=== PATIENT | male | born 1995 | race Caucasian/White ===

== ENCOUNTER 2017-06-23 17:10 | Emergency (ER) | payer OTHER ==
[2017-06-23] MEDS ORDERED: Ibuprofen TAB* 800 MG PO ONE (17:53)
--- NOTE | 2017-06-23 18:50 | RAD ---
Indication: Right ankle pain. 3 views of the right ankle demonstrates no fracture. No other bone or joint abnormality is identified. IMPRESSION: No fracture of the right ankle is noted.
--- NOTE | 2017-06-23 18:51 | RAD ---
Indication: Right foot pain. 3 views of the right foot demonstrates no fracture. No other bone or joint abnormality is identified. IMPRESSION: Unremarkable right foot.
--- NOTE | 2017-06-23 19:40 | ED ---
Reyna Holland Nilda, scribed for Vance Sousa MD on 06/23/17 at 1905 . Lower Extremity - HPI Summary HPI Summary: This patient is a 22 year old M presenting to [facility] accompanied by friend with a chief complaint of constant right foot pain s/p tripping yesterday. The patient rates the pain 5/10 in severity. Symptoms aggravated by movement and palpation and alleviated by rest. - History of Current Complaint Chief Complaint: EDExtremityLower Stated Complaint: RT ANKLE INJURY Time Seen by Provider: 06/23/17 17:49 Hx Obtained From: Patient Mechanism Of Injury: Other - tripped Onset/Duration: Days Severity Currently: Moderate Pain Intensity: 5 Pain Scale Used: 0-10 Numeric Timing: Constant Location: Is Discrete @ - right foot Aggravating Factor(s): Movement, Other - palpation Alleviating Factor(s): Rest - Allergies/Home Medications Allergies/Adverse Reactions: Allergies Allergy/AdvReac Type Severity Reaction Status Date / Time No Known Allergies Allergy Verified 06/23/17 17:20 PMH/Surg Hx/FS Hx/Imm Hx Sensory History: Denies: Hx Legally Blind EENT History: Denies: Hx Deafness Infectious Disease History: No Infectious Disease History: Denies: Traveled Outside the [place] in Last 30 Days - Family History Known Family History: Negative: Hypertension, Diabetes - Social History Alcohol Use: Occasionally Substance Use Type: Reports: Marijuana Smoking Status (MU): Never Smoked Tobacco Review of Systems Positive: Other - mechanical fall Negative: Shortness Of Breath Positive: Other - right foot pain All Other Systems Reviewed And Are Negative: Yes Physical Exam - Summary Physical Exam Summary: VITAL SIGNS: Reviewed. GENERAL: Patient is a well-developed and nourished male who is lying comfortable in the stretcher. Patient is not in any acute respiratory distress. HEAD AND FACE: No signs of trauma. No ecchymosis, hematomas or skull depressions. No sinus tenderness. EYES: PERRLA, EOMI x 2, No injected conjunctiva, no nystagmus. EARS: Hearing grossly intact. Ear canals and tympanic membranes are within normal limits. MOUTH: Oropharynx within normal limits. NECK: Supple, trachea is midline, no adenopathy, no JVD, no carotid bruit, no c- spine tenderness, neck with full ROM. CHEST: Symmetric, no tenderness at palpation LUNGS: Clear to auscultation bilaterally. No wheezing or crackles. CVS: Regular rate and rhythm, S1 and S2 present, no murmurs or gallops appreciated. ABDOMEN: Soft, non-tender. No signs of distention. No rebound no guarding, and no masses palpated. Bowel sounds are normal. EXTREMITIES: FROM in all major joints, no edema, no cyanosis or clubbing. 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 NEURO: Alert and oriented x 3. No acute neurological deficits. Speech is normal and follows commands. SKIN: Dry and warm Triage Information Reviewed: Yes Vital Signs On Initial Exam: Initial Vitals Temp Pulse Resp BP Pulse Ox 98.2 F 80 16 103/59 98 06/23/17 17:17 06/23/17 17:17 06/23/17 17:17 06/23/17 17:17 06/23/17 17:17 Vital Signs Reviewed: Yes Diagnostics - Vital Signs Vital Signs Temp Pulse Resp BP Pulse Ox 06/23/17 18:00 78 103/52 96 06/23/17 17:47 73 98 06/23/17 17:45 111/64 06/23/17 17:17 98.2 F 80 16 103/59 98 - Laboratory Lab Statement: Any lab studies that have been ordered have been reviewed, and results considered in the medical decision making process. - Radiology Right ankle XR Radiology Interpretation Completed By: Radiologist - Right ankle XR reveals no fracture of the right ankle is noted. Dr. Sousa has reviewed this radiology report. Right foot XR Radiology Interpretation Completed By: Radiologist - Right foot XR reveals unremarkable right foot. Dr. Sousa has reviewed this radiology report. Lower Extremity Course/Dx - Course Assessment/Plan: Pt is 22 y/o complaining of right foot pain s/p falling yesterday. XR of right foot and ankle are unremarkable. Pt will be D/C home with Motrin and Dx of foot contusion. - Diagnoses Provider Diagnoses: Contusion of right foot Discharge - Discharge Plan Condition: Stable Disposition: HOME Prescriptions: Ibuprofen TAB* [Motrin TAB* 800 MG] 800 mg PO Q6H PRN #30 tab PRN Reason: Pain Patient Education Materials: Foot Contusion (ED) [facility] Provider] - 3 Days Additional Instructions: RETURN TO THE EMERGENCY DEPARTMENT FOR CHANGING OR WORSENING SYMPTOMS. The documentation as recorded by the scribReyna boland Nilda accurately reflects the service I personally performed and the decisions made by me, Vance Sousa MD.
[2017-06-23 19:52] VITALS: BP 97/61
== END 2017-06-23 19:52 | disposition home or self-care (01) ==
LOC: ED 17:10
DX: S90.31XA Contusion of right foot, initial encounter (principal); W01.0XXA Fall on same level from slipping, tripping and stumbling without subsequent striking against object, initial encounter; Y92.9 Unspecified place or not applicable
CPT/HCPCS: 99282; A9270-GY